=== PATIENT | female | born 1995 | race African-American/Black ===

== ENCOUNTER 2018-08-01 13:05 | Emergency (ER) | payer OTHER ==
[~2018-08-01] VITALS: Ht 157.5 cm; Wt 80.0 kg
[2018-08-01] MEDS ORDERED: ACETAMINOPHEN 325MG TABLET PO ONE (14:45)
[2018-08-01 16:00] VITALS: BP 101/49
[2018-08-01 17:31] LABS: CLARITY URINE CLOUDY (CLEAR); COLOR URINE YELLOW (YELLOW); KETONES URINE NEGATIVE (NEGATIVE); LEUKOCYTE ESTERASE URINE 3+ (NEGATIVE); NITRITE URINE NEGATIVE (NEGATIVE); OCCULT BLOOD URINE NEGATIVE (NEGATIVE); PH URINE 6.5 (4.5-8.0); PROTEIN URINE NEGATIVE (NEGATIVE); SPECIFIC GRAVITY URINE 1.026 (1.005-1.030)
[2018-08-01 17:33] LABS: CHLORIDE 107 mEq/L (98-107)
[2018-08-01 17:37] LABS: BASOPHILS % 0.3 % (0.0-2.0); EOSINOPHILS % 2.8 % (0.0-5.0); HEMOGLOBIN. 10.1 g/dL (12.0-16.0); LYMPHOCYTES % 20.7 % (20.0-50.0); MEAN CORPUSCULAR HEMOGLOBIN 26.2 pg (28.0-32.0); MEAN CORPUSCULAR VOLUME 80.9 fL (81.0-99.0); MEAN PLATELET VOLUME 7.7 fl (7.4-10.4); MONOCYTES % 6.7 % (2.0-8.0); NEUTROPHILS % 69.5 % (40.0-76.0); PLATELET 325 x1000/uL (130-400); RED BLOOD CELL COUNT 3.84 mill/uL (4.2-5.4)
[2018-08-01 17:57] LABS: B-HCG QUANTITATIVE 8785 mIU/mL (<3)
== END 2018-08-01 18:53 | disposition home or self-care (01) ==
LOC: ER 13:05
DX: O23.42 Unspecified infection of urinary tract in pregnancy, second trimester (principal); O23.02 Infections of kidney in pregnancy, second trimester; N15.9 Renal tubulo-interstitial disease, unspecified; Z3A.17 17 weeks gestation of pregnancy
CPT/HCPCS: 36415; 76805; 81025; 84702; 99284